=== PATIENT | male | born 1980 | race Caucasian/White ===

== ENCOUNTER 2019-02-04 07:28 | Day surgery (SDC) | payer OTHER ==
[~2019-02-04 07:28] MED LIST: CEFAZOLIN 2 GM/D5W RTU 2 GM/50 ML RTUPB IV ONE; CEFAZOLIN 2 GM/D5W RTU 2 GM/50 ML RTUPB IV PRN; LACTATED RINGERS 1000 ML IV PRN; LIDOCAINE 0.5% INJ-PF (5 MG/ML) 50 ML SDV SUBCUT PRN
[2019-02-04] MEDS ORDERED: DEXAMETHASONE SOD PHOSPHATE INJ 4 MG/1 ML VIAL ONE (09:01)
[2019-02-04] MEDS ORDERED: ONDANSETRON HCL INJ/PF 4 MG/2 ML SDV ONE (09:01)
[2019-02-04] MEDS ORDERED: MIDAZOLAM 2 MG/2 ML INJ ONE (09:01)
[2019-02-04] MEDS ORDERED: FENTANYL CITRATE INJ/PF 100 MCG/2 ML AMPUL ONE (09:01)
[2019-02-04] MEDS ORDERED: LIDOCAINE 1% INJ-PF (10 MG/ML) 30 ML SDV ONE (09:02)
[2019-02-04] MEDS ORDERED: BUPIVACAINE HCL 0.5 % INJ/PF 30 ML SDV ONE (09:02)
[2019-02-04] MEDS ORDERED: PROPOFOL INJ 200 MG/20 ML VIAL IV ONE (09:02)
[2019-02-04] MEDS ORDERED: PROMETHAZINE HCL INJ 25 MG/1 ML VIAL IV PRN ×2 (09:35)
[2019-02-04] MEDS ORDERED: MEPERIDINE HCL/PF INJ 25 MG/1 ML DISP.SYRIN IV PRN (09:35)
[2019-02-04] MEDS ORDERED: FENTANYL CITRATE INJ/PF 100 MCG/2 ML AMPUL IV PRN ×3 (09:35)
[2019-02-04] MEDS ORDERED: DIPHENHYDRAMINE HCL 50 MG/ML VIAL IV PRN (09:35)
[2019-02-04] MEDS ORDERED: MORPHINE SULFATE 10 MG/ML INJ IV PRN (09:35)
[2019-02-04] MEDS ORDERED: OXYCODONE-ACETAMINOPHEN 5-325 MG TABLET ONE (10:44)
[2019-02-04 12:02] VITALS: BP 115/72
--- NOTE | 2019-02-04 13:14 | OPERATIVE REPORT E ---
Operative Report NAME: ELVIN LOPEZ : 1980 AGE: 38Y DATE OF SURGERY: 02/04/2019 ROOM: PREOPERATIVE DIAGNOSIS: 1. Left long trigger finger. 2. Left ring trigger finger. POSTOPERATIVE DIAGNOSIS: 1. Left long trigger finger at A1 edilma, FDS tendon. 1. Left long trigger finger at A1 edilma, FDP tendon. 2. Left ring trigger finger at A1 edilma, FDS tendon. 2. Left ring trigger finger at A! edilma, FDP tendon. PROCEDURE: 1. Left long trigger finger release FDS tendon with tenosynovectomy. 2. Left long trigger finger release FDP tendon with tenosynovectomy. 3. Left ring trigger finger release FDS tendon with tenosynovectomy. 4. Left ring trigger finger release FDP tendon with tenosynovectomy. SURGEON: LINDA SOTELO M.D. ANESTHESIA: General. BLOOD LOSS: Minimal. COMPLICATIONS: None. INDICATIONS: The patient is a 38-year-old man with pain and locking of his left long and ring fingers. He has had nonoperative treatment including cortisone injection. DESCRIPTION OF PROCEDURE: Following the induction of a general anesthetic, administration of antibiotics, the patient was placed supine on the operating room table. Bony prominences were padded. A tourniquet was placed proximally on the left arm but not inflated. The left upper extremity was sterilely prepped with Chloraprep and draped in a standard fashion. The arm was exsanguinated, the tourniquet inflated to 100 mm above systolic pressure. A transverse incision was made at the distal palmar crease along the course of the long and ring fingers. A sharp incision was performed through the skin. Blunt dissection was performed through the subcutaneous tissue with care taken to identify and protect digital arteries and nerves. The A1 edilma first of the long finger then the ring finger were released under 0.5 loupe magnification. All tendons were pulled out of the wound and tenosynovectomy performed of the FDS tendon and FDP tendon, separate locations, of each of the long and ring fingers. Fingers were passively taken through a full range of motion. There was no locking or triggering. There was no increased bulk of any of the tendons. The wound was then irrigated and skin reapproximated with 3-0 monofilament suture. Marcaine 0.25% was injected for postoperative analgesia and a bulky sterile dressing was applied. The patient tolerated the procedure well without complications; was brought to the recovery room in stable condition. DICTATING PHYSICIAN: LINDA SOTELO M.D. [id number] PHY#: [id number] ID: [id number] JOB#: [id number] ACCT: [id number] cc:LINDA SOTELO M.D. > MTDD
== END 2019-02-04 11:35 | disposition home or self-care (01) ==
LOC: OROUT 07:28
PROVIDERS: ATTEND Orthopaedic Surgery
DX: M65.332 Trigger finger, left middle finger (principal); M65.342 Trigger finger, left ring finger; K21.9 Gastro-esophageal reflux disease without esophagitis; J30.2 Other seasonal allergic rhinitis; Z79.899 Other long term (current) drug therapy
CPT/HCPCS: 26055 ×4; 26145 ×4; J2250; J3490; J1100; J3010; J2405; J2704; J0690; 1810